=== PATIENT | male | born 2000 | race Caucasian/White ===

== ENCOUNTER 2021-09-02 18:00 | Observation (INO) ==
[2021-09-02] MEDS ORDERED: BACITRACIN OINT 15 GM TUBE ONE ×3 (18:09→19:44)
[2021-09-02] MEDS ORDERED: SODIUM CHLORIDE 0.9% 1000ML 1,000 ML IV ONE (18:15)
[2021-09-02] MEDS ORDERED: DIPHTHERIA/TETANUS/PERTUSSIS 0.5 ML SYR/VIAL IM ONE (18:15)
[2021-09-02] MEDS ORDERED: MoRPHine SULFATE 4 MG/ML 1 ML CARP\\VIAL IV PRN (18:22)
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
--- NOTE | 2021-09-02 18:34 | Emergency Department Note ---
ED Visit Note I was consulted by the Advanced Practice Provider. I saw the patient personally and performed a substantive portion of the visit. This includes aspects of the HPI, MDM, diagnostic interpretations, and disposition/plan. .
[2021-09-02] MEDS ORDERED: KETOROLAC 30 MG/ML VIAL IV STA (19:24)
[2021-09-02] MEDS: LACTATED RINGER'S 1,000 ML IV SCH (20:08)
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
[2021-09-02] MEDS: BACITRACIN OINT 15 GM TUBE EXT SCH (20:24)
[2021-09-02 21:39] LABS: Basophils # (auto) 0.03 K/uL (0-0.2); Basophils % (auto) 0.3 %; Eosinophils # (auto) 0.45 K/uL (0-0.5); Eosinophils % (auto) 4.5 %; Hemoglobin 16.2 g/dL (14.0-18.0); Immature Granulocytes # (auto) 0.01 K/uL (0.00-0.02); Immature Granulocytes % (auto) 0.1 %; Lymphocytes % (auto) 30.8 %; Mean Corpuscular Hemoglobin 30.8 pg (25-34); Mean Corpuscular Hgb Conc 35.2 g/dL (32-36); Mean Corpuscular Volume 87.5 fL (80-100); Mean Platelet Volume 10.8 fL (7.4-10.4); Monocytes # (auto) 0.53 K/uL (0.11-0.59); Monocytes % (auto) 5.3 %; Neutrophils # (auto) 5.96 K/uL (1.4-6.5); Platelet Count 281 K/uL (130-400); RDW Coefficient of Variation 12.1 % (11.5-14.5); RDW Standard Deviation 38.7 fL (36.4-46.3); Red Blood Count 5.26 M/uL (4.7-6.1); White Blood Count 10.08 K/uL (4.8-10.8)
[2021-09-02 21:46] LABS: BUN Creatinine Ratio 16.2 (10-20); Calcium 9.1 mg/dl (8.5-10.1); Creatinine Clr Calc Pharmacy 112.2 ml/min; Est GFR (African American) 117.9 ml/min; Est GFR (Non-African American) 101.7 ml/min; Magnesium 1.9 mg/dl (1.7-2.4); Potassium 3.3 mmol/L (3.5-5.1)
[2021-09-02] MEDS ORDERED: KETOROLAC 30 MG/ML VIAL IV PRN (22:03)
[2021-09-02] MEDS ORDERED: ACETAMINOPHEN 500 MG TAB PO PRN (22:03)
[2021-09-02] MEDS ORDERED: HYDROmorphone INJ 0.5 MG/0.5 ML SYR IV PRN (22:03)
[2021-09-03] MEDS: LACTATED RINGER'S 1,000 ML IV SCH (04:10)
[2021-09-03] MEDS ORDERED: POTASSIUM CHLORIDE CRTAB 20 MEQ TABCR PO STA (08:30)
[2021-09-03] MEDS: BACITRACIN OINT 15 GM TUBE EXT SCH (12:37)
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
--- NOTE | 2021-09-03 17:51 | Billing Data ---
Date of Service September 03, 2021 Coding Level of Care Code 42519 OBS Care - Discharge
== END 2021-09-03 14:17 | disposition home or self-care (01) ==
LOC: ED 18:00 → 3W 18:00 → SUATTDRO 20:00 → 3W 21:39